=== PATIENT | male | born 1940 | race Caucasian/White ===

== ENCOUNTER 2024-01-19 19:19 | Emergency (ER) | payer MEDICARE, OTHER, SELFPAY ==
[2024-01-19 19:26] VITALS: BP 146/78; PULSE 54; TEMP 37.2; O2SAT 96; BMI 22.4
[2024-01-19 20:14] LABS: PCR FLU A Negative PCR FLU A (Negative); PCR FLU B Negative PCR FLU B (Negative); PCR RSV Negative PCR RSV (Negative); SARS PCR* POSITIVE SARS-CoV-2 (Negative)
[2024-01-19 21:24] VITALS: TEMP 37.3
--- NOTE | 2024-01-19 21:26 | ED_ITS ---
HPI - General Adult General Date Seen: 01/19/24 Chief complaint: Fever Stated complaint: fever, covid+ Time Seen by Provider: 01/19/24 20:56 Source: patient and family Mode of arrival: ambulatory Limitations: no limitations History of Present Illness HPI narrative: Patient is an 83-year-old male with a history of atrial fibrillation, on Coumadin as well as metoprolol and flecainide. He is here from [place] visiting his daughter. She had COVID last week and then yesterday he developed a fever, cough, fatigue and headache. COVID test was positive. He says he actually feels better today but has continued to run a fever, up to 103 at home. His daughter says that they called the triage line number told his temperature was 103? that he needed to be seen. He does not have a lot complaints right now, he was prescribed Tessalon Perles earlier for continued cough. He does not have shortness of breath or chest pain. He has not had vomiting. The only reason they are here is because of his temperature at home. He did not take anything for fever at home, was noted to be afebrile on arrival here. Did take Tylenol earlier today and daughter said that it did not have any affect on the fever. His general health is overall pretty good, he does not smoke, denies significant alcohol use. He is considering moving to the area as 3 of his kids live here so he has been looking at houses. Related Data Allergies Allergy/AdvReac Type Severity Reaction Status Date / Time No Known Drug Allergies Allergy Verified 01/19/24 19:25 Review of Systems Status of ROS: Reports: 6 or more systems reviewed and unremarkable except as noted in History and below [facility] Social History Smoking Status: Former smoker How often do you have a drink containing alcohol: never AUDIT-C Alcohol total score: 0 Non-prescribed substance use: denies use service: No Exam Narrative: Exam Narrative: Vital signs as noted above. In general, an alert, well-appearing patient. Conversant, pleasant. Head: Normocephalic, atraumatic. Eyes: Pupils are equal reactive. Extraocular movements are full. Conjunctivae are normal. ENT: Mucous membranes are moist. Throat is normal. Neck: Supple without lymphadenopathy. Heart: Regular rate and rhythm. No murmur or rub. Lungs: Clear bilaterally. No increased work of breathing, crackles or wheezes. Neurologic: Patient is alert and oriented to person and place. Speech is fluent. Face is symmetric. Moves all extremities equally. Affect: Normal. Skin: Warm and dry. Well perfused. Const: Vital Signs, click to edit/add: Vital Signs - 24 hr 01/19/24 19:26 01/19/24 21:24 Temperature 98.9 F 99.2 F Pulse Rate [Pulse Oximeter] 54 L Blood Pressure [Ri ght Upper Arm] 146/78 H Pulse Oximetry 96 Documenting provider has reviewed patient's vital signs: yes Course Course ED Course: Patient presents with known diagnosis of COVID, minimal symptoms, fever noted at home, resolved here. We did recheck his temperature at his request and it is 99.2. I had a long conversation with the patient and his daughter about this. I am not overly concerned about the degree of fever at home, given that he is feeling well and we have a clear explanation for fever. We did do viral swab here in the influenza and RSV are negative. I offered lab and x-ray if they felt they would feel better with evaluation, but also noted that I think we are unlikely to find anything that will require alternative treatment at this time. He is not a candidate for Paxlovid as he is on Coumadin, and remdesivir is not an option as he will be heading back to [place]. They declined evaluation at this time. Discussed that if he is feeling worse at any point, developed significant shortness of breath, vomiting, weakness, he should be seen again regardless of level of temperature. Vital Signs Vital signs: Initial Vital Signs Temperature 98.9 F 01/19/24 19: Temperature Source Temporal Artery Scan 01/19/24: Pulse Rate 54 L 01/19/24 19: Blood Pressure 146/78 H 01/19/24 19: Blood Pressure Mean 100 01/19/24 19: Blood Pressure Position Sitting 01/19/24 19: Pulse Oximetry 96 01/19/24 19: Vital Signs Temperature 98.9 F 01/19/24 19: Pulse Rate 54 L 01/19/24 19: Blood Pressure 146/78 H 03/13/24 19:26 Pulse Oximetry 96 01/19/24 19:26 Temperature 99.2 F 01/19/24 21:24 Pulse Rate 54 L 01/19/24 19:26 Blood Pressure 146/78 H 01/19/24 19:26 Pulse Oximetry 96 01/19/24 19:26 Medical Decision Making Lab Data Labs: Lab Results 01/19/24 Range/Units 19:32 SARS-CoV-2 (PCR) POSITIVE SARS-CoV-2 A (Negative) Influenza Type A (PCR) Negative PCR FLU A (Negative) Influenza Type B (PCR) Negative PCR FLU B (Negative) RSV (PCR) Negative PCR RSV (Negative) Discharge Plan Discharge Clinical Impression: COVID-19 Patient Disposition: Home, Self-Care Condition: Stable Instructions: COVID-19 (Coronavirus Disease 2019) (ED) Additional Instructions: Manage fever with Tylenol as needed. If you feel that you are worsening, have significant weakness, vomiting, shortness of breath, chest pain etcetera, return at any time for re-evaluation. Stand Alone Forms: [facility] Info Instructions
== END 2024-01-19 21:58 | disposition home or self-care (01) ==
LOC: ED 21:42
PROVIDERS: Emergency Provider Emergency Medicine
DX: R50.9 Fever, unspecified (principal); U07.1 COVID-19
CPT/HCPCS: 87631; 99283; 99284

== ENCOUNTER 2025-08-15 14:56 | Outpatient (CLI) | payer MEDICARE, OTHER, SELFPAY | END 2025-08-15 14:57 | disposition home or self-care (01) | PROVIDERS: PCP Family Medicine; Visit Provider Family Medicine | DX: E78.5 Hyperlipidemia, unspecified (principal); C61 Malignant neoplasm of prostate; I48.91 Unspecified atrial fibrillation; R53.83 Other fatigue; Z13.6 Encounter for screening for cardiovascular disorders; Z13.1 Encounter for screening for diabetes mellitus; Z13.21 Encounter for screening for nutritional disorder; Z13.29 Encounter for screening for other suspected endocrine disorder | CPT/HCPCS: 80048; 80061; 82607; 84153; 84443 ==